=== PATIENT | male | born 1995 ===

== ENCOUNTER 2021-05-29 09:30 | Emergency (ER) | payer MEDICAID, OTHER ==
[2021-05-29 09:48] VITALS: BP 114/55
--- NOTE | 2021-05-29 09:51 | XRAY Report ---
PROCEDURE: Chest 1 View X-Ray INDICATIONS: chest pain TECHNIQUE: One view of the chest was acquired. COMPARISON: None. FINDINGS: Surgical changes and devices: None. Lungs and pleura: No pleural effusions or pneumothorax. Lungs are clear. Mediastinum: Mediastinal contours appear normal. Heart size is normal. Bones and chest wall: No suspicious bony lesions. Overlying soft tissues appear unremarkable. IMPRESSION: No acute cardiopulmonary abnormality. Reviewed by: John Jha MD on 05/29/2021 9:49 AM [facility] Approved by: John Jha MD on 05/29/2021 9:49 AM [facility] Station ID: [id number]
[2021-05-29] MEDS ORDERED: predniSONE 20 MG TABLET PO STA (10:49)
[2021-05-29] MEDS ORDERED: ALBUTEROL 1 PUFF INH STA (10:49)
--- NOTE | 2021-05-29 10:52 | ED Physician Documentation ---
History of Present Illness - Stated complaint Stated Complaint: RATTLING IN CHEST - Chief complaint Chief Complaint: General - History obtained from History obtained from: Patient - Additonal information Additional information: Patient comes emergency department chief complaint of persistent feeling of rattling in his chest for the last couple of weeks. He states that he has not had a fever or chills, and has not felt sick necessarily, but has had a cough productive of intermittently clear or yellow sputum. Patient has a history of smoking cigarettes and has been able to cut down to 3 cigarettes/day. He previously smoked a pack a day, but went to rehab for opiates in the spring and did not have access to his cigarettes. When he got out, he found he was able to get by with much fewer in the way of cigarettes than he had before. Patient states has been clean and sober from drugs for the last 4 months, but would like some resources for counseling, substance abuse, and general support. He states he left his old place of residence [place] [address] and came here to live with his brother, who is been a support to him. No other complaints at this time Review of Systems Ten Systems: 10 systems reviewed and negative Constitutional: reports: Reviewed and negative Eyes: reports: Reviewed and negative Ears: reports: Reviewed and negative Nose: reports: Reviewed and negative Throat: reports: Reviewed and negative Cardiac: reports: Reviewed and negative Respiratory: reports: Cough GI: reports: Reviewed and negative : reports: Reviewed and negative Skin: reports: Reviewed and negative Musculoskeletal: reports: Reviewed and negative Neurologic: reports: Reviewed and negative Psychiatric: reports: Reviewed and negative Endocrine: reports: Reviewed and negative Immunocompromised: reports: Reviewed and negative PD PAST MEDICAL HISTORY - Present Medications Home Medications: Ambulatory Orders Medication Instructions Recorded Confirmed Albuterol Sulf [Ventolin Hfa 1 - 2 puffs INH Q4HR PRN #1 inhaler 05/29/21 Inhaler] predniSONE [Deltasone] 60 mg PO DAILY 5 Days #15 tablet 05/29/21 - Allergies Allergies/Adverse Reactions: Allergies Allergy/AdvReac Type Severity Reaction Status Date / Time acetaminophen [From Tylenol] Allergy Rash Verified 05/29/21 09:44 PD ED PE NORMAL - Vitals Vital signs reviewed: Yes - General General: Alert and oriented X 3, No acute distress, Well developed/nourished - HEENT HEENT: Atraumatic, PERRL, EOMI, Moist mucous membranes - Neck Neck: Supple, no meningeal sign - Cardiac Cardiac: RRR, No murmur - Respiratory Respiratory: No respiratory distress, Other (Bilateral expiratory wheezes and rhonchi, mild. 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 He was given prescription for the same for home. I have given him some community resources for counseling for substance abuse as well as some recommendations for primary care. We have discussed the usual indications for return and the need to quit smoking. Departure - Departure Disposition: 01 Home, Self Care Clinical Impression: Bronchospasm with bronchitis, acute Condition: Stable Instructions: Quit Smoking Plan, ED Wheezing Prescriptions: Albuterol Sulf [Ventolin Hfa Inhaler] 1 - 2 puffs INH Q4HR PRN #1 inhaler PRN Reason: Shortness Of Air/Wheezing predniSONE [Deltasone] 60 mg PO DAILY 5 Days #15 tablet
== END 2021-05-29 11:44 | disposition home or self-care (01) ==
LOC: ED 09:30
DX: J20.9 Acute bronchitis, unspecified (principal)
CPT/HCPCS: 71045; 94640; 94664; 99283; 99284; J7512

== ENCOUNTER 2021-10-24 08:00 | Outpatient (CLI) | payer MEDICAID ==
[2021-10-24 18:11] LABS: BASOPHILS # (AUTO) 0.1 10^3/uL (0.0-0.1); BASOPHILS % (AUTO) 0.4 %; EOSINOPHILS % (AUTO) 0.3 %; HCT - HEMATOCRIT 39.6 % (42.0-52.0); HGB - HEMOGLOBIN 13.8 g/dL (14.0-18.0); LYMPHOCYTES # (AUTO) 2.3 10^3/uL (1.5-3.5); LYMPHOCYTES % (AUTO) 20.2 %; MEAN CORPUSCULAR HEMOGLOBIN 32.5 pg (27.0-31.0); MEAN CORPUSCULAR HGB CONC 34.8 g/dL (32.0-36.0); MEAN CORPUSCULAR VOLUME 93.2 fL (80.0-94.0); MEAN PLATELET VOLUME 9.9 fL (7.4-11.4); MONOCYTES # (AUTO) 1.3 10^3/uL (0.0-1.0); MONOCYTES % (AUTO) 10.9 %; NEUTROPHILS # (AUTO) 7.9 10^3/uL (1.5-6.6); NEUTROPHILS % (AUTO) 67.9 %; PLT - PLATELET COUNT 322 10^3/uL (130-450); RED BLOOD COUNT 4.25 10^6/uL (4.70-6.10); WHITE BLOOD COUNT 11.6 x10^3/uL (4.8-10.8)
[2021-10-24 18:34] LABS: BILIRUBIN,URINE NEGATIVE (NEGATIVE); GLUCOSE, URINE (UA) NEGATIVE (NEGATIVE); KETONES,URINE (UA) 15 mg/dL (NEGATIVE); LEUKOCYTE ESTERASE, URINE NEGATIVE (NEGATIVE); NITRITE,URINE NEGATIVE (NEGATIVE); OCCULT BLOOD,URINE NEGATIVE (NEGATIVE); PROTEIN,URINE NEGATIVE (NEGATIVE); UROBILINOGEN,URINE 0.2 (NORMAL) E.U./dL (NORMAL)
[2021-10-24 18:35] LABS: ALBUMIN 5.3 g/dL (3.2-5.5); ALBUMIN/GLOBULIN RATIO 2.1 (1.0-2.2); BILIRUBIN,TOTAL 1.5 mg/dL (0.2-1.0); CALCIUM 9.3 mg/dL (8.5-10.3); CREATININE 1.6 mg/dL (0.6-1.2); POTASSIUM 3.6 mmol/L (3.5-5.0); TOTAL PROTEIN 7.8 g/dL (6.7-8.2)
[2021-10-24 18:45] LABS: CLARITY,URINE CLEAR (CLEAR)
== END 2021-10-24 23:59 | disposition home or self-care (01) ==
LOC: LAB.N 08:00
PROVIDERS: ATTEND Family Medicine
DX: R11.2 Nausea with vomiting, unspecified (principal)
CPT/HCPCS: 36415; 80053; 81001; 81003; 82150; 83690; 85025; 87086

== ENCOUNTER 2021-11-08 23:12 | Outpatient (CLI) | payer MEDICAID | END 2021-11-08 23:13 | disposition critical access hospital (66) | LOC: EMS 23:12 | DX: R45.851 Suicidal ideations (principal) | CPT/HCPCS: A0425; A0429; A0999 ==

== ENCOUNTER 2021-11-08 23:31 | Emergency (ER) | payer MEDICAID ==
--- OUTSIDE RECORDS SUMMARY | 2021-11-08 23:40 | EXTERNAL MEDICAL SUMMARY RPT | Continuity of Care Document ---
:1995 Author Organization [facility] Address [address] [place] [address] Phone Care Team Providers Name Role Phone Clapper Unavailable Unavailable Allergies No information. Encounters No information. Medications date description facility 20211027 Ondansetron 4 MG Disintegrating Tablet [facility] Problems date description facility 20211027 Nausea with vomiting, unspecified [facility] Procedures date description facility 20211027 General Physician [facility] Results No information. Vital Signs date measurement value source 20211027 weight_standard 149.98 lb 20211027 weight_metric 68.03 kg 20211027 temperature_standard 99 F 20211027 temperature_metric 37.22 C 20211027 respiration_rate 16 /min 20211027 height_standard 73 in 20211027 height_metric 185.42 cm 20211027 heart_rate 88 /min 20211027 BP_systolic 118 mm[Hg] 20211027 BP_diastolic 71 mm[Hg] 20211027 BMI 19.8 kg/m2
[2021-11-08 23:55] LABS: MUDS CUTOFF CONCENTRATIONS CUTOFF CONC BELOW:
[2021-11-09] LABS: BILIRUBIN,URINE NEGATIVE (NEGATIVE); GLUCOSE, URINE (UA) NEGATIVE (NEGATIVE); KETONES,URINE (UA) TRACE mg/dL (NEGATIVE); LEUKOCYTE ESTERASE, URINE NEGATIVE (NEGATIVE); NITRITE,URINE NEGATIVE (NEGATIVE); OCCULT BLOOD,URINE NEGATIVE (NEGATIVE); PH,URINE 5.5 PH (5.0-7.5); PROTEIN,URINE 30 mg/dL (NEGATIVE); UROBILINOGEN,URINE 0.2 (NORMAL) E.U./dL (NORMAL)
[2021-11-09 00:02] LABS: CLARITY,URINE SL. CLOUDY (CLEAR)
[2021-11-09 00:11] LABS: AMORPHOUS SEDIMENT,UR Few /LPF; BACTERIA,URINE Rare /HPF (None Seen); RBC,URINE 0-5 /HPF (0-5); SQUAMOUS EPITHELIAL CELL,UR RARE Squamous (<= Few); WBC,URINE 0-3 /HPF (0-3)
[2021-11-09 00:12] LABS: CASTS, URINE 11-25 Fine Granular /LPF; CRYSTALS,URINE 6-10 Calcium Oxalate /LPF
[2021-11-09 00:13] LABS: AMPHETAMINE SCREEN,URINE NEGATIVE (NEGATIVE); BARBITURATE SCREEN,UR NEGATIVE (NEGATIVE); BENZODIAZEPINES SCREEN, URINE NEGATIVE (NEGATIVE); COCAINE SCREEN URINE NEGATIVE (NEGATIVE); METHADONE SCREEN, URINE NEGATIVE (NEGATIVE); METHAMPHETAMINES SCREEN, URINE NEGATIVE (NEGATIVE); OPIATE SCREEN, URINE NEGATIVE (NEGATIVE); OXYCODONE SCREEN, URINE NEGATIVE (NEGATIVE); PROPOXYPHENE SCREEN, URINE NEGATIVE (NEGATIVE); THC CANNABINOID SCREEN, URINE POSITIVE (NEGATIVE); TRICYCLIC ANTIDEPRESSANT,URINE NEGATIVE (NEGATIVE)
--- NOTE | 2021-11-09 01:36 | ED Physician Documentation ---
History of Present Illness - Stated complaint Stated Complaint: WANTS TO GET CLEAN - Chief complaint Chief Complaint: MHE - History obtained from History obtained from: Patient - History of Present Illness Timing: Today Improved by: nothing Worsened by: no exacerbating factors - Additonal information Additional information: patient states "I'm withdrawing from fentanyl". He says he has been using fentanyl daily (smokes), last use approximately 36 hours [employer] (Friday morning). He says he lost his job earlier today and was kicked out of his living situation 2 days ago. He has been on suboxone and lamictal in the past, estimates his last doses of these medications was five months ago (lamictal had been prescribed as a mood stabilizer). He is interested in inpatient detox from fentanyl Review of Systems Constitutional: reports: Reviewed and negative Cardiac: reports: Reviewed and negative Respiratory: reports: Reviewed and negative GI: reports: Reviewed and negative Musculoskeletal: reports: Reviewed and negative Neurologic: reports: Reviewed and negative Psychiatric: reports: Reviewed and negative PD PAST MEDICAL HISTORY - Past Medical History Past Medical History: No - Present Medications Home Medications: Ambulatory Orders Medication Instructions Recorded Confirmed Albuterol Sulf [Ventolin Hfa 1 - 2 puffs INH Q4HR PRN #1 inhaler 05/29/21 Inhaler] predniSONE [Deltasone] 60 mg PO DAILY 5 Days #15 tablet 05/29/21 - Allergies Allergies/Adverse Reactions: Allergies Allergy/AdvReac Type Severity Reaction Status Date / Time acetaminophen [From Tylenol] Allergy Rash Verified 05/29/21 09:44 - Social History Does the pt have substance abuse?: Yes PD ED PE NORMAL - Vitals Vital signs reviewed: Yes - General General: Alert and oriented X 3, No acute distress, Well developed/nourished - HEENT HEENT: Moist mucous membranes - Neck Neck: Supple, no meningeal sign - Cardiac Cardiac: RRR, No murmur - Respiratory Respiratory: No respiratory distress, Clear bilaterally - Abdomen Abdomen: Soft, Non tender - Derm Derm: Normal color, Warm and dry, No rash - Neuro Neuro: Alert and oriented X 3 - Psych Psych: Normal mood, Normal affect Results - Vitals Vitals: Vital Signs - 24 hr 11/08/21 11/09/21 11/09/21 23:36 04:25 06:30 Temperature 36.4 C L 36.9 C Heart Rate 68 74 64 Respiratory 20 20 9 L Rate Blood Pressure 123/81 H 130/76 102/56 L O2 Saturation 99 97 96 11/09/21 06:53 Temperature Heart Rate 55 L Respiratory 9 L Rate Blood Pressure O2 Saturation 95 Oxygen O2 Source Room air - Labs Labs: Laboratory Tests 11/08/21 11/09/21 11/09/21 23:45 02:14 02:28 WBC 12.2 H RBC 3.80 L Hgb 12.3 L Hct 36.2 L MCV 95.3 H MCH 32.4 H MCHC 34.0 RDW 13.7 Plt Count 245 MPV 9.3 Neut # (Auto) 7.9 H Lymph # (Auto) 3.1 [place] # (Auto) 1.1 H Eos # (Auto) 0.0 Baso # (Auto) 0.0 Absolute Nucleated RBC 0.00 Nucleated RBC % 0.0 Sodium Potassium Chloride Carbon Dioxide Anion Gap BUN Creatinine Estimated GFR (MDRD) Glucose Calcium Total Bilirubin AST ALT Alkaline Phosphatase Total Protein Albumin Globulin Albumin/Globulin Ratio Lipase TSH Urine Color YELLOW Urine Clarity SL. CLOUDY Urine pH 5.5 Ur Specific [place] >=1.030 H Urine Protein 30 H Urine Glucose (UA) NEGATIVE Urine Ketones TRACE Urine Occult Blood NEGATIVE Urine Nitrite NEGATIVE Urine Bilirubin NEGATIVE Urine Urobilinogen 0.2 (NORMAL) Ur Leukocyte Esterase NEGATIVE Urine RBC 0-5 Urine WBC 0-3 Ur Squamous Epith Cells RARE Squamous Urine Crystals 6-10 Calcium Oxalate Amorphous Sediment Few Urine Bacteria Rare Urine Casts 11-25 Fine Granular Urine Culture Comments NOT INDICATED Nasal Adenovirus (PCR) NOT DETECTED Nasal B. parapertussis DNA (PCR) NOT DETECTED Nasal Coronavir 229E PCR NOT DETECTED Nasal Coronavir HKU1 PCR NOT DETECTED Nasal Coronavir NL63 PCR NOT DETECTED Nasal Coronavir OC43 PCR NOT DETECTED Nasal Enterovir/Rhinovir PCR NOT DETECTED Nasal Influenza B PCR NOT DETECTED Nasal Influenza A PCR NOT DETECTED Nasal Parainfluen 1 PCR NOT DETECTED Nasal Parainfluen 2 PCR NOT DETECTED Nasal Parainfluen 3 PCR NOT DETECTED Nasal Parainfluen 4 PCR NOT DETECTED Nasal RSV (PCR) NOT DETECTED Nasal B.pertussis DNA PCR NOT DETECTED Nasal C.pneumoniae (PCR) NOT DETECTED [place] Human Metapneumo PCR NOT DETECTED Nasal M.pneumoniae (PCR) NOT DETECTED Nasal SARS-CoV-2 (PCR) NOT DETECTED Salicylates Urine Opiates Screen NEGATIVE Ur Oxycodone Screen NEGATIVE Urine Methadone Screen NEGATIVE Ur Propoxyphene Screen NEGATIVE Acetaminophen Ur Barbiturates Screen NEGATIVE Ur Tricyclics Screen NEGATIVE Ur Phencyclidine Scrn NEGATIVE Ur Amphetamine Screen NEGATIVE U Methamphetamines Scrn NEGATIVE U Benzodiazepines Scrn NEGATIVE Urine Cocaine Screen NEGATIVE U Cannabinoids Screen POSITIVE H Ethyl Alcohol 11/09/21 11/09/21 02:28 02:28 WBC RBC Hgb Hct MCV MCH MCHC RDW Plt Count MPV Neut # (Auto) Lymph # (Auto) [place] # (Auto) Eos # (Auto) Baso # (Auto) Absolute Nucleated RBC Nucleated RBC % Sodium 136 Potassium 3.9 Chloride 101 Carbon Dioxide 24 Anion Gap 11.0 BUN 22 H Creatinine 1.4 H Estimated GFR (MDRD) 62 L Glucose 112 H Calcium 9.4 Total Bilirubin 0.7 AST 47 H ALT 40 Alkaline Phosphatase 105 Total Protein 7.0 Albumin 4.4 Globulin 2.6 Albumin/Globulin Ratio 1.7 Lipase 33 TSH 1.82 Urine Color Urine Clarity Urine pH Ur Specific [place] Urine Protein Urine Glucose (UA) Urine Ketones Urine Occult Blood Urine Nitrite Urine Bilirubin Urine Urobilinogen Ur Leukocyte Esterase Urine RBC Urine WBC Ur Squamous Epith Cells Urine Crystals Amorphous Sediment Urine Bacteria Urine Casts Urine Culture Comments Nasal Adenovirus (PCR) Nasal B. parapertussis DNA (PCR) Nasal Coronavir 229E PCR Nasal Coronavir HKU1 PCR Nasal Coronavir NL63 PCR Nasal Coronavir OC43 PCR Nasal Enterovir/Rhinovir PCR Nasal Influenza B PCR Nasal Influenza A PCR Nasal Parainfluen 1 PCR Nasal Parainfluen 2 PCR Nasal Parainfluen 3 PCR Nasal Parainfluen 4 PCR Nasal RSV (PCR) Nasal B.pertussis DNA PCR Nasal C.pneumoniae (PCR) [place] Human Metapneumo PCR Nasal M.pneumoniae (PCR) Nasal SARS-CoV-2 (PCR) Salicylates < 6.0 Urine Opiates Screen Ur Oxycodone Screen Urine Methadone Screen Ur Propoxyphene Screen Acetaminophen < 10 L Ur Barbiturates Screen Ur Tricyclics Screen Ur Phencyclidine Scrn Ur Amphetamine Screen U Methamphetamines Scrn U Benzodiazepines Scrn Urine Cocaine Screen U Cannabinoids Screen Ethyl Alcohol < 5.0 PD MEDICAL DECISION MAKING - ED course Complexity details: reviewed results, re-evaluated patient, considered differential, d/w patient ED course: Patient presents calm, cooperative , and in NAD, requesting detox from fentanyl. I contacted [facility] to ascertain bed availability, but I was told that due to staffing shortages, they cannot intake new patients until Friday. Thus plan is to consult in AM for placement. Patient became increasingly uncomfortable over ensuing few hours, having difficulty sitting still, with profuse diaphoresis, abdominal cramping and diarrhea. Despite this, he remained polite and cooperative. At no time did he ask for any medications. Initially he was given clonidine and lorazepam PO (early in stay, before he became visibly uncomfortable), along with ibuprofen for headache. As he became uncomfortable and diaphoretic, he was given IV dilaudid and lorazepam, as well as PO loperamide. He was given another dose of IV lorazepam and another dose of IV dilaudid had been ordered, but he finally became sedate and thus he did not receive the second IV dilaudid dose. He then was drowsy for remainder of my shift; he would waken briefly to repeated verbal stimulation, but speech was slurred and some of his answers to questions were odd. ED RN contacted [facility] and they attempted intake over phone, but patient was drowsy and, again, was giving odd answers (such as talking about his cat when asked his social security number). Plan is to hold patient in ED until the given medications wear off at which time he can be reassessed for transfer to appropriate detox facility if he still desires this. Care of patient turned over to Dr. Ortiz at end of my shift.
[2021-11-09] MEDS: IBUPROFEN 600 MG TABLET PO STA (02:01)
[2021-11-09 02:36] LABS: BASOPHILS % (AUTO) 0.3 %; EOSINOPHILS % (AUTO) 0.3 %; HCT - HEMATOCRIT 36.2 % (42.0-52.0); HGB - HEMOGLOBIN 12.3 g/dL (14.0-18.0); LYMPHOCYTES # (AUTO) 3.1 10^3/uL (1.5-3.5); LYMPHOCYTES % (AUTO) 25.3 %; MEAN CORPUSCULAR HEMOGLOBIN 32.4 pg (27.0-31.0); MEAN CORPUSCULAR VOLUME 95.3 fL (80.0-94.0); MEAN PLATELET VOLUME 9.3 fL (7.4-11.4); MONOCYTES # (AUTO) 1.1 10^3/uL (0.0-1.0); NEUTROPHILS # (AUTO) 7.9 10^3/uL (1.5-6.6); NEUTROPHILS % (AUTO) 64.9 %; PLT - PLATELET COUNT 245 10^3/uL (130-450); RED CELL DISTRIBUTION WIDTH 13.7 % (12.0-15.0); WHITE BLOOD COUNT 12.2 x10^3/uL (4.8-10.8)
[2021-11-09 02:47] LABS: ACETAMINOPHEN < 10 ug/mL (10-30); ALBUMIN 4.4 g/dL (3.2-5.5); ALBUMIN/GLOBULIN RATIO 1.7 (1.0-2.2); ALKALINE PHOSPHATASE 105 IU/L (42-121); ALT ALANINE AMINOTRANSFERASE 40 IU/L (10-60); AST ASPARTATE AMINOTRANSFERASE 47 IU/L (10-42); BILIRUBIN,TOTAL 0.7 mg/dL (0.2-1.0); BUN - BLOOD UREA NITROGEN 22 mg/dL (6-20); CALCIUM 9.4 mg/dL (8.5-10.3); CARBON DIOXIDE - CO2 24 mmol/L (21-32); CHLORIDE 101 mmol/L (101-111); CREATININE 1.4 mg/dL (0.6-1.2); ETOH - ETHANOL < 5.0 mg/dL; GFR - MDRD 62 (>89); GLUCOSE 112 mg/dL (70-100); LIPASE 33 U/L (22-51); POTASSIUM 3.9 mmol/L (3.5-5.0); SALICYLATE < 6.0 mg/dL; SODIUM 136 mmol/L (135-145)
[2021-11-09 03:14] LABS: B. PARAPERTUSSIS- RESP PCR PAN NOT DETECTED; CORONAVIRUS 229E-RESP PCR NOT DETECTED; CORONAVIRUS HKU1-RESP PCR NOT DETECTED; CORONAVIRUS NL63-RESP PCR NOT DETECTED; CORONAVIRUS OC43-RESP PCR NOT DETECTED; HUMAN METAPNEUMOVIRUS NOT DETECTED; INFLUENZA A- RESP PCR PANEL NOT DETECTED; INFLUENZA B - RESP PCR PANEL NOT DETECTED; PARAINFLUENZA VIRUS 1 NOT DETECTED; PARAINFLUENZA VIRUS 2 NOT DETECTED; PARAINFLUENZA VIRUS 3 NOT DETECTED; PARAINFLUENZA VIRUS 4 NOT DETECTED; RHINOVIRUS/ENTEROVIRUS NOT DETECTED; RSV- RESP PCR PANEL NOT DETECTED; SARS-CoV-2 -RESP PCR PANEL NOT DETECTED
[2021-11-09 03:15] LABS: B. PERTUSSIS- RESP PCR PANEL NOT DETECTED; C. PNEUMONIAE- RESP PCR PANEL NOT DETECTED; M. PNEUMONIAE- RESP PCR PANEL NOT DETECTED
[2021-11-09] MEDS: cloNIDine 0.1 MG TABLET PO STA (04:35)
[2021-11-09] MEDS: LORazepam 0.5 MG TABLET PO STA (04:35)
[2021-11-09] MEDS: LORazepam 2 MG/ML VIAL IM STA (04:58)
[2021-11-09] MEDS: LOPERAMIDE 2 MG CAPSULE PO STA (04:58)
[2021-11-09] MEDS: HYDROmorphone 1 MG/ML CARPUJECT IVP STA ×2 (05:34→05:55)
[2021-11-09] MEDS: LORazepam 2 MG/ML VIAL IVP STA (05:39)
[2021-11-09] MEDS: SODIUM CHLORIDE 0.9% 1,000 ML IV STA ×2 (05:40→09:20)
[2021-11-09] MEDS: ONDANSETRON 4 MG/2 ML VIAL IVP STA (09:27)
--- NOTE | 2021-11-09 14:30 | ED Physician Documentation ---
ED Addendum - Addendum Addendum: 11/09/21 14:27Social work has talked with the patient and has sought out detox facilities for treatment acutely. One of the places considered excepting him except he also takes an herbal drug called kratom and so they did not want him. Other facilities that would accept him did not have any beds available. He is given resources to contact the facilities over the next few days when they should be having beds available. Otherwise he is still sleepy from medications given earlier. Hard to tell entirely but I presume more the benzodiazepine. He is not showing signs of acute withdrawal from opioids at this time but no doubt will have some later. He has used Suboxone in the past with success in the short-term. I can prescribe him Suboxone outpatient for the next 5 days during which time he should be likely to find placement one of the detox facilities for further treatment. At this point do I talked with him and he will need to hold off on the first dosing until he is starting to have withdrawal symptoms later this afternoon. You can use ondansetron if needed for nausea as well. He should return to the ER if needed for worsening symptoms. Disposition: The patient is discharged from the emergency room stable. Diagnoses: Polysubstance abuse 2. Prescription opioid addiction and dependence 3. Opioid withdrawal syndrome
[2021-11-09 15:08] VITALS: BP 108/66
== END 2021-11-09 15:20 | disposition home or self-care (01) ==
LOC: EDUNIT# → ED 23:31
DX: F11.23 Opioid dependence with withdrawal (principal); Z20.822 Contact with and (suspected) exposure to COVID-19
CPT/HCPCS: 36415; 80053; 80306; 80307; 80320; 80329; 81001; 83690; 84443; 85025; 87633; 96372; 96374; 96375; 99283; 99284; A9270; J1170; J2060; 87086

== ENCOUNTER 2022-06-08 13:05 | Emergency (ER) | payer MEDICAID ==
[2022-06-08] MEDS ORDERED: VANCOMYCIN INJ 1.25 GM in SODIUM CHLORIDE 0.9% 250 ML IV STA (13:42)
[2022-06-08] MEDS ORDERED: AMPICILLIN/SULBACTAM 3 GM in SODIUM CHLORIDE 0.9% MINIBAG 100 ML IV STA (13:42)
[2022-06-08] MEDS ORDERED: SODIUM CHLORIDE 0.9% 1,000 ML IV STA (13:43)
[2022-06-08 14:06] LABS: BASOPHILS % (AUTO) 0.3 %; EOSINOPHILS # (AUTO) 0.3 10^3/uL (0.0-0.7); EOSINOPHILS % (AUTO) 2.3 %; HCT - HEMATOCRIT 39.9 % (42.0-52.0); HGB - HEMOGLOBIN 12.5 g/dL (14.0-18.0); LYMPHOCYTES # (AUTO) 1.3 10^3/uL (1.5-3.5); LYMPHOCYTES % (AUTO) 11.5 %; MEAN CORPUSCULAR HEMOGLOBIN 27.8 pg (27.0-31.0); MEAN CORPUSCULAR HGB CONC 31.3 g/dL (32.0-36.0); MEAN CORPUSCULAR VOLUME 88.7 fL (80.0-94.0); MEAN PLATELET VOLUME 8.2 fL (7.4-11.4); MONOCYTES # (AUTO) 0.5 10^3/uL (0.0-1.0); MONOCYTES % (AUTO) 4.7 %; NEUTROPHILS % (AUTO) 80.8 %; PLT - PLATELET COUNT 406 10^3/uL (130-450); RED CELL DISTRIBUTION WIDTH 14.3 % (12.0-15.0); WHITE BLOOD COUNT 11.1 x10^3/uL (4.8-10.8)
[2022-06-08 14:15] LABS: INR 1.1 (0.8-1.2); PT - PROTHROMBIN TIME 12.2 secs (9.9-12.6)
[2022-06-08 14:18] LABS: ALBUMIN 3.4 g/dL (3.2-5.5); ALBUMIN/GLOBULIN RATIO 0.8 (1.0-2.2); BILIRUBIN,TOTAL 0.2 mg/dL (0.2-1.0); CALCIUM 9.3 mg/dL (8.5-10.3); CREATININE 0.6 mg/dL (0.6-1.2); POTASSIUM 3.9 mmol/L (3.5-5.0); TOTAL PROTEIN 7.9 g/dL (6.7-8.2)
--- NOTE | 2022-06-08 14:21 | XRAY Report ---
PROCEDURE: Chest 1 View X-Ray INDICATIONS: fever TECHNIQUE: One view of the chest was acquired. COMPARISON: None. FINDINGS: Limited by rotation Surgical changes and devices: None. Lungs and pleura: No pleural effusions or pneumothorax. Lungs are clear. Mediastinum: Mediastinal contours appear normal. Heart size is normal. Bones and chest wall: No suspicious bony lesions. Overlying soft tissues appear unremarkable. IMPRESSION: No acute cardiopulmonary findings Reviewed by: Guillermo Caballero MD on 06/08/2022 1:20 PM [facility] Approved by: Guillermo Caballero MD on 06/08/2022 1:20 PM [facility] Station ID: [id number]
[2022-06-08 14:22] LABS: PARTIAL THROMBOPLASTIN TIME 30.4 secs (24.9-33.3)
--- NOTE | 2022-06-08 14:26 | ED Physician Documentation ---
History of Present Illness - Stated complaint Stated Complaint: SWELLING BOTH HANDS - Chief complaint Chief Complaint: Wound - History obtained from History obtained from: Patient, Family - History of Present Illness Timing: How many weeks ago (several weeks) Pain level max: 6 Pain level now: 4 - Additonal information Additional information: Patient is a 27-year-old male who presents to the emergency department complaining of wounds to his bilateral hands and arms. He uses fentanyl daily, injects and smokes. He states he has felt feverish at home. He was seen at [facility] about 4 weeks ago and was placed on IV antibiotics. He reportedly left [facility] in [place] because he did not like the treatment there. He states that the wounds have been draining spontaneously. No vomiting. No cough. No chest pain. No abdominal pain. Review of Systems Ten Systems: 10 systems reviewed and negative Constitutional: denies: Fever, Chills Nose: denies: Rhinorrhea / runny nose, Congestion Cardiac: denies: Chest pain / pressure, Palpitations Respiratory: denies: Dyspnea, Cough, Hemoptysis, Wheezing GI: denies: Nausea, Vomiting, Diarrhea Skin: denies: Rash Musculoskeletal: denies: Neck pain, Back pain Neurologic: denies: Headache PD PAST MEDICAL HISTORY - Past Medical History Past Medical History: Yes Respiratory: Other : Other Psych: Other - Past Surgical History Past Surgical History: No General: Appendectomy - Present Medications Home Medications: Ambulatory Orders Medication Instructions Recorded Confirmed Albuterol Sulf [Ventolin Hfa 1 - 2 puffs INH Q4HR PRN #1 inhaler 05/29/21 Inhaler] predniSONE [Deltasone] 60 mg PO DAILY 5 Days #15 tablet 05/29/21 Buprenorphine HCl/Naloxone HCl 1 each SL BID 5 Days #10 film MDD 11/09/21 [Suboxone 8 mg-2 mg Sl Film] 16 mg Promethazine [Phenergan] 25 mg PO Q6H PRN #15 tab 11/09/21 Sulfamethox/Trimeth 800/160 1 each PO BID #20 tablet 06/08/22 [Bactrim Ds 800/160] cephALEXin [Keflex] 500 mg PO Q6H #40 cap 06/08/22 - Allergies Allergies/Adverse Reactions: Allergies Allergy/AdvReac Type Severity Reaction Status Date / Time acetaminophen [From Tylenol] Allergy Rash Verified 06/08/22 13:16 - Social History Does the pt smoke?: Yes Smoking Status: Current every day smoker Does the pt drink ETOH?: Yes Does the pt have substance abuse?: Yes - Immunizations Immunizations are current?: No - POLST Patient has POLST: No PD ED PE NORMAL - Vitals Vital signs reviewed: Yes - General General: Alert and oriented X 3, No acute distress - HEENT HEENT: Moist mucous membranes - Neck Neck: Supple, no meningeal sign - Cardiac Cardiac: RRR, No murmur, Strong equal pulses - Respiratory Respiratory: No respiratory distress, Clear bilaterally - Abdomen Abdomen: Soft, Non tender, Non distended - Derm Derm: Warm and dry - Extremities Extremities: Normal ROM s pain (Full range of motion of all major joints without pain.), Other (There is a draining wound to the dorsal aspect of the left hand. There is also an indurated draining wound to the right forearm. There are scabbed lesions on the right knee. Minimal cellulitis.) - Neuro Neuro: Alert and oriented X 3 - Psych Psych: Normal mood, Normal affect Results - Vitals Vitals: Vital Signs - 24 hr 06/08/22 06/08/22 13:12 15:30 Temperature 36.9 C Heart Rate 103 H 68 Respiratory 16 24 Rate Blood Pressure 139/88 H 137/61 H O2 Saturation 99 99 Oxygen O2 Source Room air - Labs Labs: Microbiology 06/08/22 14:45 Wound Culture - Preliminary Hand - Left Laboratory Tests 06/08/22 06/08/22 06/08/22 13:52 13:52 13:52 WBC 11.1 H RBC 4.50 L Hgb 12.5 L Hct 39.9 L MCV 88.7 MCH 27.8 MCHC 31.3 L RDW 14.3 Plt Count 406 MPV 8.2 Neut # (Auto) 9.0 H Lymph # (Auto) 1.3 L [place] # (Auto) 0.5 Eos # (Auto) 0.3 Baso # (Auto) 0.0 Absolute Nucleated RBC 0.00 Nucleated RBC % 0.0 PT INR APTT Sodium 139 Potassium 3.9 Chloride 100 L Carbon Dioxide 29 Anion Gap 10.0 BUN 11 Creatinine 0.6 Estimated GFR (MDRD) 163 Glucose 128 H Lactic Acid 1.6 Calcium 9.3 Total Bilirubin 0.2 AST 19 ALT 22 Alkaline Phosphatase 73 Total Protein 7.9 Albumin 3.4 Globulin 4.5 H Albumin/Globulin Ratio 0.8 L Lipase 38 Procalcitonin Urine Color Urine Clarity Urine pH Ur Specific [place] Urine Protein Urine Glucose (UA) Urine Ketones Urine Occult Blood Urine Nitrite Urine Bilirubin Urine Urobilinogen Ur Leukocyte Esterase Ur Microscopic Review Urine Culture Comments 06/08/22 06/08/22 06/08/22 13:57 13:57 16:20 WBC RBC Hgb Hct MCV MCH MCHC RDW Plt Count MPV Neut # (Auto) Lymph # (Auto) [place] # (Auto) Eos # (Auto) Baso # (Auto) Absolute Nucleated RBC Nucleated RBC % PT 12.2 INR 1.1 APTT 30.4 Sodium Potassium Chloride Carbon Dioxide Anion Gap BUN Creatinine Estimated GFR (MDRD) Glucose Lactic Acid Calcium Total Bilirubin AST ALT Alkaline Phosphatase Total Protein Albumin Globulin Albumin/Globulin Ratio Lipase Procalcitonin 0.09 Urine Color YELLOW Urine Clarity CLEAR Urine pH 7.5 Ur Specific [place] 1.010 Urine Protein NEGATIVE Urine Glucose (UA) NEGATIVE Urine Ketones NEGATIVE Urine Occult Blood NEGATIVE Urine Nitrite NEGATIVE Urine Bilirubin NEGATIVE Urine Urobilinogen 0.2 (NORMAL) Ur Leukocyte Esterase NEGATIVE Ur Microscopic Review NOT INDICATED Urine Culture Comments NOT INDICATED PD MEDICAL DECISION MAKING - ED course Complexity details: reviewed results, re-evaluated patient, considered differential (No evidence of septic joints, no evidence of endocarditis.), d/w patient, d/w family ED course: Patient has open draining wounds with cellulitis. His lactate is normal. Procalcitonin is normal. White count minimally elevated. Given IV antibiotics here. Will place on oral antibiotics for home. We will have him follow-up closely with his doctor. Information was given for rehab/detox should he choose to pursue this. The information was gone over extensively with his brother. On the patient has no indication for admission at this time. No evidence of sepsis. Patient and family counseled regarding signs and symptoms for which I believe and urgent re-evaluation would be necessary. Patient with good understanding of and agreement to plan and is comfortable going home at this time This document was made in part using voice recognition software. While efforts are made to proofread this document, sound alike and grammatical errors may occur. Departure - Departure Disposition: 01 Home, Self Care Clinical Impression: Abscess, Opiate abuse, continuous Condition: Good Instructions: ED Staph Infec Abx Tx Only, ED Drug Abuse General Follow-Up: [facility] [place] [Provider Group] Primary[facility]Walk In [place] [Provider Group] Walk In [facility] [Provider Group] Prescriptions: Sulfamethox/Trimeth 800/160 [Bactrim Ds 800/160] 1 each PO BID #20 tablet cephALEXin [Keflex] 500 mg PO Q6H #40 cap Comments: Your prescriptions were sent to [facility] in [place]. Please follow-up with your doctor for further care. You should have your wounds rechecked in 3 to 4 days with your doctor. Please return here if you worsen including fevers, worsening redness or swelling. [facility] is a rehabilitation facility in [place]. Contact: [facility] [address] [place] [phone] Fax: Discharge Date/Time: 06/08/22 17:02
[2022-06-08 15:57] VITALS: BP 137/61
[2022-06-08 16:25] LABS: BILIRUBIN,URINE NEGATIVE (NEGATIVE); GLUCOSE, URINE (UA) NEGATIVE (NEGATIVE); KETONES,URINE (UA) NEGATIVE (NEGATIVE); LEUKOCYTE ESTERASE, URINE NEGATIVE (NEGATIVE); NITRITE,URINE NEGATIVE (NEGATIVE); OCCULT BLOOD,URINE NEGATIVE (NEGATIVE); PH,URINE 7.5 PH (5.0-7.5); PROTEIN,URINE NEGATIVE (NEGATIVE); UROBILINOGEN,URINE 0.2 (NORMAL) E.U./dL (NORMAL)
[2022-06-08 16:32] LABS: CLARITY,URINE CLEAR (CLEAR)
--- NOTE | 2022-06-11 12:28 | ED Physician Documentation ---
ED Addendum - Addendum Addendum: 06/11/22 12:28 Culture reviewed, he has a fairly huerta resistant MRSA, the only oral option would be linezolid and I asked the nurse to call him in: Linezolid 600 mg p.o. twice daily for 10 days no refills
== END 2022-06-08 17:02 | disposition home or self-care (01) ==
LOC: ED 13:05
DX: L02.413 Cutaneous abscess of right upper limb (principal); L02.512 Cutaneous abscess of left hand; L03.115 Cellulitis of right lower limb; B95.62 Methicillin resistant Staphylococcus aureus infection as the cause of diseases classified elsewhere; F11.10 Opioid abuse, uncomplicated; F17.200 Nicotine dependence, unspecified, uncomplicated
CPT/HCPCS: 36415; 71045; 80053; 81003; 83605; 83690; 84145; 85025; 85610; 85730; 87040; 87070; 87181; 87205; 96365; 96366; 96367; 99284; J3370; 81001; 87086

== ENCOUNTER 2022-06-11 15:45 | Emergency (ER) | payer MEDICAID ==
[2022-06-11 16:46] LABS: BASOPHILS # (AUTO) 0.1 10^3/uL (0.0-0.1); BASOPHILS % (AUTO) 0.5 %; EOSINOPHILS # (AUTO) 0.2 10^3/uL (0.0-0.7); EOSINOPHILS % (AUTO) 1.7 %; HGB - HEMOGLOBIN 13.3 g/dL (14.0-18.0); LYMPHOCYTES # (AUTO) 1.7 10^3/uL (1.5-3.5); LYMPHOCYTES % (AUTO) 14.8 %; MEAN CORPUSCULAR HEMOGLOBIN 28.5 pg (27.0-31.0); MEAN CORPUSCULAR HGB CONC 32.4 g/dL (32.0-36.0); MEAN CORPUSCULAR VOLUME 87.8 fL (80.0-94.0); MEAN PLATELET VOLUME 8.1 fL (7.4-11.4); MONOCYTES # (AUTO) 0.7 10^3/uL (0.0-1.0); MONOCYTES % (AUTO) 5.8 %; NEUTROPHILS # (AUTO) 8.8 10^3/uL (1.5-6.6); NEUTROPHILS % (AUTO) 76.5 %; PLT - PLATELET COUNT 484 10^3/uL (130-450); RED BLOOD COUNT 4.67 10^6/uL (4.70-6.10); RED CELL DISTRIBUTION WIDTH 14.2 % (12.0-15.0); WHITE BLOOD COUNT 11.4 x10^3/uL (4.8-10.8)
[2022-06-11] MEDS ORDERED: METHADONE 5 MG TABLET PO STA (16:54)
--- NOTE | 2022-06-11 16:54 | ED Physician Documentation ---
History of Present Illness - Stated complaint Stated Complaint: FEVER/NUMBNESS - Chief complaint Chief Complaint: General - History obtained from History obtained from: Patient, Family - Additonal information Additional information: This is young man with history of IV fentanyl abuse who presents with his mother. He was seen here by one of my partners on Friday for wounds and subsequently a culture grew out a fairly huerta resistant MRSA. He had a fever last night and they are unsure that they will be able to fill the linezolid that we called in earlier in the day due to cost. Review of Systems Ten Systems: 10 systems reviewed and negative Constitutional: reports: Fever, Fatigue (But a question of whether this is due to his withdrawal or the illness) Nose: reports: Rhinorrhea / runny nose GI: denies: Abdominal Pain, Nausea, Vomiting PD PAST MEDICAL HISTORY - Past Medical History Past Medical History: Yes Cardiovascular: None Respiratory: Other Neuro: None Endocrine/Autoimmune: None GI: None : Other HEENT: None Psych: Other Musculoskeletal: None Derm: None - Past Surgical History Past Surgical History: No General: Appendectomy - Present Medications Home Medications: Ambulatory Orders Medication Instructions Recorded Confirmed Sulfamethox/Trimeth 800/160 1 each PO BID #20 tablet 06/08/22 06/11/22 [Bactrim Ds 800/160] cephALEXin [Keflex] 500 mg PO Q6H #40 cap 06/08/22 06/11/22 Chlorhexidine Gluconate [Hibiclens] 10 ml TP DAILY #236 ml 06/11/22 Linezolid [Zyvox] 600 mg PO BID #20 tablet 06/11/22 Mupirocin 2% Oint [Bactroban 2% 1 applic TOP BID #50 gm 06/11/22 Oint] - Allergies Allergies/Adverse Reactions: Allergies Allergy/AdvReac Type Severity Reaction Status Date / Time acetaminophen [From Tylenol] Allergy Rash Verified 06/11/22 16:02 - Social History Does the pt smoke?: Yes Smoking Status: Current every day smoker Does the pt drink ETOH?: Yes Does the pt have substance abuse?: Yes Substance Use and Type: Other - Immunizations Immunizations are current?: No - POLST Patient has POLST: No PD ED PE NORMAL - Vitals Vital signs reviewed: Yes - General General: Alert and oriented X 3, No acute distress - HEENT HEENT: Other (Mildly dilated pupils, rhinorrhea) - Cardiac Cardiac: RRR, No murmur - Respiratory Respiratory: No respiratory distress, Clear bilaterally - Abdomen Abdomen: Non tender - Back Back: No CVA TTP, No spinal TTP - Derm Derm: Normal color, Warm and dry - Extremities Extremities: Other (There is a purulent ulcer on the dorsum of the left hand with mild cellulitis, and also a purulent ulcer on the right anterior forearm. There is a very small ulcer on the right ankle without signs of infection.) - Neuro Neuro: Alert and oriented X 3, Normal speech Results - Vitals Vitals: Vital Signs - 24 hr 06/11/22 06/11/22 15:55 16:43 Temperature 37.0 C Heart Rate 120 H 112 H Respiratory 18 18 Rate Blood Pressure 128/75 127/75 O2 Saturation 98 99 Oxygen O2 Source Room air - Labs Labs: Laboratory Tests 06/11/22 06/11/22 06/11/22 16:40 16:40 16:40 WBC 11.4 H RBC 4.67 L Hgb 13.3 L Hct 41.0 L MCV 87.8 MCH 28.5 MCHC 32.4 RDW 14.2 Plt Count 484 H MPV 8.1 Neut # (Auto) 8.8 H Lymph # (Auto) 1.7 [place] # (Auto) 0.7 Eos # (Auto) 0.2 Baso # (Auto) 0.1 Absolute Nucleated RBC 0.00 Nucleated RBC % 0.0 Sodium 138 Potassium 3.9 Chloride 100 L Carbon Dioxide 28 Anion Gap 10.0 BUN 18 Creatinine 0.8 Estimated GFR (MDRD) 117 Glucose 113 H Lactic Acid 1.6 Calcium 9.0 Total Bilirubin 0.2 AST 17 ALT 22 Alkaline Phosphatase 89 Total Protein 7.9 Albumin 3.5 Globulin 4.4 H Albumin/Globulin Ratio 0.8 L PD MEDICAL DECISION MAKING - ED course ED course: 27-year-old homeless male with history of IV drug use, specifically fentanyl for the most part presents with wounds to the left hand, right forearm, and ankle with known huerta resistant MRSA. The only oral option is linezolid. He is not looking septic, and blood Cultures from the other day are negative. No murmur or other evidence of endocarditis. His white count is stable, minimally elevated at 11. There is a question of whether he is insured right now or not so I asked the family welfare social work professor to come by and help with that. In the meantime I was able to look up on good Rx, linezolid is now generic and available for about $50 for the course. This is within the mother's ability to help him with. He was also interested in detox and was given referral sources for [facility]. Departure - Departure Disposition: 01 Home, Self Care Clinical Impression: Opiate abuse, continuous, MRSA (methicillin resistant staph aureus) culture positive Open wound, hand Qualifiers: Encounter type: initial encounter Open wound type: unspecified Foreign body presence: without foreign body Laterality: left Qualified Code(s): S61.402A - Unspecified open wound of left hand, initial encounter Arm wound Qualifiers: Encounter type: initial encounter Laterality: right Qualified Code(s): S41.101A - Unspecified open wound of right upper arm, initial encounter Condition: Good Record reviewed to determine appropriate education?: Yes Instructions: ED Withdrawal Narcotic, ED Infec Skin Cellulitis Prescriptions: Mupirocin 2% Oint [Bactroban 2% Oint] 1 applic TOP BID #50 gm Chlorhexidine Gluconate [Hibiclens] 10 ml TP DAILY #236 ml Linezolid [Zyvox] 600 mg PO BID #20 tablet Comments: Recommend checking in at the detox facility that I gave you information for. For wound care, wash twice a day with Hibiclens, scrub the wound is much as you are able and then cover with mupirocin ointment and a simple bandage dressing. Call your doctor to arrange a follow-up appointment, make the next available appointment. In the interim, return anytime if worse or if new symptoms develop.
[2022-06-11 16:58] LABS: ALBUMIN 3.5 g/dL (3.2-5.5); ALBUMIN/GLOBULIN RATIO 0.8 (1.0-2.2); BILIRUBIN,TOTAL 0.2 mg/dL (0.2-1.0); CREATININE 0.8 mg/dL (0.6-1.2); POTASSIUM 3.9 mmol/L (3.5-5.0); TOTAL PROTEIN 7.9 g/dL (6.7-8.2)
[2022-06-11] MEDS ORDERED: LINEZOLID 600 MG/300 ML 600 MG/300 ML BAG IV ONE (17:00)
[2022-06-11 18:11] VITALS: BP 116/70
== END 2022-06-11 18:20 | disposition home or self-care (01) ==
LOC: ED 15:45
DX: F11.10 Opioid abuse, uncomplicated (principal); L03.114 Cellulitis of left upper limb; S61.402A Unspecified open wound of left hand, initial encounter; S41.101A Unspecified open wound of right upper arm, initial encounter; B95.62 Methicillin resistant Staphylococcus aureus infection as the cause of diseases classified elsewhere; L98.499 Non-pressure chronic ulcer of skin of other sites with unspecified severity; L97.319 Non-pressure chronic ulcer of right ankle with unspecified severity; X58.XXXA Exposure to other specified factors, initial encounter; J34.89 Other specified disorders of nose and nasal sinuses; F17.200 Nicotine dependence, unspecified, uncomplicated; Z59.00 Homelessness unspecified
CPT/HCPCS: 36415; 80053; 83605; 85025; 96365; 99283; 99284; A9270; J2020; 87040

== ENCOUNTER 2022-06-16 09:16 | Outpatient (CLI) | payer MEDICAID | END 2022-06-16 23:59 | disposition EMS.NT | LOC: EMS 09:16 | DX: R07.9 Chest pain, unspecified (principal) ==

== ENCOUNTER 2022-06-18 16:04 | Emergency (ER) | payer MEDICAID ==
[2022-06-18 18:45] VITALS: BP 130/80
--- NOTE | 2022-06-18 18:45 | ED Physician Documentation ---
History of Present Illness - Stated complaint Stated Complaint: FEVER, OPEN WOUNDS - Chief complaint Chief Complaint: General - History obtained from History obtained from: Patient - Additonal information Additional information: This is a 27-year-old male with a past medical history of IV fentanyl abuse Who presents with mother due to concerns for fever. The patient was seen about 10 days ago for fever and wounds on his extremities and was diagnosed with MRSA ulcerations on both hands and the right knee. He was given linezolid p.o. which he took a couple times and then missed about 5 days and then took a couple and then missed a day Or 2 again. He states Wounds are actually getting better but he continues to feel febrile and he is very fatigued, he slept the better part of the last 48 hours. He has not used IV drugs or any other drugs recently and states everything out of his system. He went to an intake visit today At a rehab facility and they said they cannot take him until his fevers were addressed. He has a cough and feels some pain that is reproducible on the left chest wall, has not had any dyspnea, no abdominal pain, no nausea vomiting or diarrhea, no urinary symptoms. He is unsure if he has had any sick contacts. The patient intermittently lives on the streets and with his mother. He states he is last took naproxen this morning around 8 or 9 AM, no other antipyretics today. He is afebrile on arrival but states he just ate ice cream however I repeat test after 2 hours shows that he is still afebrile. Review of Systems Ten Systems: 10 systems reviewed and negative (Except as noted in HPI) PD PAST MEDICAL HISTORY - Past Medical History Past Medical History: Yes Cardiovascular: None Respiratory: Other Neuro: None Endocrine/Autoimmune: None GI: None : Other HEENT: None Psych: Other (IV drug use) Musculoskeletal: None Derm: None - Past Surgical History Past Surgical History: No General: Appendectomy - Present Medications Home Medications: Ambulatory Orders Medication Instructions Recorded Confirmed Linezolid [Zyvox] 600 mg PO BID #20 tablet 06/11/22 06/18/22 - Allergies Allergies/Adverse Reactions: Allergies Allergy/AdvReac Type Severity Reaction Status Date / Time acetaminophen [From Tylenol] Allergy Rash Verified 06/18/22 16:22 - Social History Does the pt smoke?: Yes Smoking Status: Current every day smoker Does the pt drink ETOH?: Yes Does the pt have substance abuse?: Yes - Immunizations Immunizations are current?: No - POLST Patient has POLST: No PD ED PE NORMAL - Vitals Vital signs reviewed: Yes - General General: Alert and oriented X 3, No acute distress, Other (Appears thin and somewhat disheveled but in no acute distress) - HEENT HEENT: Atraumatic, Moist mucous membranes, Pharynx benign - Neck Neck: Supple, no meningeal sign, No JVD - Cardiac Cardiac: RRR, No murmur, No gallop, No rub, Strong equal pulses - Respiratory Respiratory: No respiratory distress, Clear bilaterally - Abdomen Abdomen: Normal bowel sounds, Soft, Non tender, Non distended - Derm Derm: Normal color, Warm and dry, Other (Healing ulcerations on the right and left hand as well as the right knee. There is no surrounding erythema, no current drainage, no palpable induration or fluctuance) - Extremities Extremities: No deformity, No tenderness to palpate, Normal ROM s pain, No edema - Neuro Neuro: Alert and oriented X 3 Eye Opening: Spontaneous Motor: Obeys Commands Verbal: Oriented GCS Score: 15 - Psych Psych: Normal mood, Normal affect Results - Vitals Vitals: Vital Signs - 24 hr 06/18/22 06/18/22 06/18/22 16:20 16:22 18:22 Temperature 36.8 C 36.8 C 36.6 C Heart Rate 99 99 88 Respiratory 16 16 16 Rate Blood Pressure 144/79 H 144/79 H 130/80 O2 Saturation 100 100 100 Oxygen O2 Source Room air - Labs Labs: Laboratory Tests 06/18/22 06/18/22 06/18/22 18:40 18:40 18:58 WBC 15.4 H RBC 4.56 L Hgb 13.0 L Hct 39.8 L MCV 87.3 MCH 28.5 MCHC 32.7 RDW 15.1 H Plt Count 349 MPV 8.2 Neut # (Auto) 12.5 H Lymph # (Auto) 2.1 Real # (Auto) 0.7 Eos # (Auto) 0.1 Baso # (Auto) 0.0 Absolute Nucleated RBC 0.00 Nucleated RBC % 0.0 Sodium 138 Potassium 3.9 Chloride 104 Carbon Dioxide 24 Anion Gap 10.0 BUN 17 Creatinine 0.8 Estimated GFR (MDRD) 117 Glucose 130 H Calcium 9.1 Nasal Adenovirus (PCR) NOT DETECTED Nasal B. parapertussis DNA (PCR) NOT DETECTED Nasal Coronavir 229E PCR NOT DETECTED Nasal Coronavir HKU1 PCR NOT DETECTED Nasal Coronavir NL63 PCR NOT DETECTED Nasal Coronavir OC43 PCR NOT DETECTED Nasal Enterovir/Rhinovir PCR DETECTED A Nasal Influenza B PCR NOT DETECTED Nasal Influenza A PCR NOT DETECTED Nasal Parainfluen 1 PCR NOT DETECTED Nasal Parainfluen 2 PCR NOT DETECTED Nasal Parainfluen 3 PCR NOT DETECTED Nasal Parainfluen 4 PCR NOT DETECTED Nasal RSV (PCR) NOT DETECTED Nasal B.pertussis DNA PCR NOT DETECTED Nasal C.pneumoniae (PCR) NOT DETECTED Saturnino Human Metapneumo PCR NOT DETECTED Nasal M.pneumoniae (PCR) NOT DETECTED Nasal SARS-CoV-2 (PCR) NOT DETECTED PD MEDICAL DECISION MAKING - ED course Complexity details: reviewed results, re-evaluated patient, considered differential, d/w patient, d/w family ED course: This is a 27-year-old male with past medical history of IV fentanyl use and rece nt MRSA infection for which he is prescribed antibiotics that he took only intermittently who presents with symptoms as per HPI including fever, fatigue, nasal congestion and mild cough. He is stable appearing on physical exam, his vitals are stable he is afebrile. He does have some healing ulcerations on his hands and right knee that appear to be improved from prior, not currently draining, no spreading erythema. Who is complaining of chest wall pain however there are no signs of rash or lesions in the chest wall and a chest x-ray is negative. A work-up was done as patient does have a history of MRSA and was probably incompletely treated with medication as he did not adhere to regimen after we did obtain blood cultures, CBC and CMP. CBC does show an increase in his white blood cell count however clinically his wounds appear to be better And he has no other physical exam findings concerning for new bacterial infection. Blood cultures were obtained however he has no fever or signs of sepsis at this time to suggest the need for admission for IV antibiotics. The patient also had a viral panel done which shows rhinovirus which may be contributing to his symptoms as well. He has about 6 more days of antibiotics left and he was advised to resume them now and to take as prescribed for the next 6 days for his MRSA infection. He was otherwise advised to continue supportive measures including ibuprofen and Tylenol for body aches cold symptoms. At this time, he does not need to be hospitalized but if his blood cultures returned positive, he would need to come in for IV antibiotics, or if he had clinical deterioration despite compliance with his oral antibiotics. The patient was counseled extensively on the need to be compliant with his medication and return precautions reviewed. He plans to get into drug rehab once this infection is improved. Departure - Departure Disposition: 01 Home, Self Care Clinical Impression: Viral syndrome, MRSA (methicillin resistant staph aureus) culture positive Condition: Good Instructions: ED Skin Infec MRSA Suspect Conf, ED Viral Syndrome Ch Comments: You presented with ongoing fevers and feeling unwell in general. Your physical exam here is stable, your wounds Appear to be healing though he did miss some doses of antibiotics. Do have an elevated white blood cell count of this is nonspecific and likely due to your wounds. Please resume taking the linezolid and do not miss any doses as this can lead to resistance. We did draw blood cultures today and if they turning sander tender positive we will call you for return to the hospital. We also obtained a viral panel which is still pending. You can log onto you your patient portal to look for results or call you later tonight or in the morning for results of this viral panel. Viral symptoms are treated suppo rtively with Tylenol and ibuprofen as needed, rest and plenty of oral fluids. At this point time you are stable for discharge home. Discharge Date/Time: 06/18/22 19:40
[2022-06-18 19:02] LABS: BASOPHILS % (AUTO) 0.3 %; EOSINOPHILS # (AUTO) 0.1 10^3/uL (0.0-0.7); EOSINOPHILS % (AUTO) 0.6 %; HCT - HEMATOCRIT 39.8 % (42.0-52.0); LYMPHOCYTES # (AUTO) 2.1 10^3/uL (1.5-3.5); LYMPHOCYTES % (AUTO) 13.4 %; MEAN CORPUSCULAR HEMOGLOBIN 28.5 pg (27.0-31.0); MEAN CORPUSCULAR HGB CONC 32.7 g/dL (32.0-36.0); MEAN CORPUSCULAR VOLUME 87.3 fL (80.0-94.0); MEAN PLATELET VOLUME 8.2 fL (7.4-11.4); MONOCYTES # (AUTO) 0.7 10^3/uL (0.0-1.0); MONOCYTES % (AUTO) 4.3 %; NEUTROPHILS # (AUTO) 12.5 10^3/uL (1.5-6.6); NEUTROPHILS % (AUTO) 81.1 %; PLT - PLATELET COUNT 349 10^3/uL (130-450); RED BLOOD COUNT 4.56 10^6/uL (4.70-6.10); RED CELL DISTRIBUTION WIDTH 15.1 % (12.0-15.0); WHITE BLOOD COUNT 15.4 x10^3/uL (4.8-10.8)
[2022-06-18 19:11] LABS: CALCIUM 9.1 mg/dL (8.5-10.3); CREATININE 0.8 mg/dL (0.6-1.2); POTASSIUM 3.9 mmol/L (3.5-5.0)
--- NOTE | 2022-06-18 19:14 | XRAY Report ---
PROCEDURE: Chest 1 View X-Ray INDICATIONS: chest pain TECHNIQUE: One view of the chest was acquired. COMPARISON: Chest x-ray 06/08/2022 FINDINGS: Surgical changes and devices: None. Lungs and pleura: No pleural effusions or pneumothorax. Lungs are clear. Mediastinum: Mediastinal contours appear normal. Heart size is normal. Bones and chest wall: No suspicious bony lesions. Overlying soft tissues appear unremarkable. IMPRESSION: No acute pulmonary process. Reviewed by: China Hair MD on 06/18/2022 7:13 PM PST Approved by: China Hair MD on 06/18/2022 7:13 PM [facility] Station ID: [id number]
[2022-06-18 19:42] LABS: B. PARAPERTUSSIS- RESP PCR PAN NOT DETECTED; B. PERTUSSIS- RESP PCR PANEL NOT DETECTED; C. PNEUMONIAE- RESP PCR PANEL NOT DETECTED; CORONAVIRUS 229E-RESP PCR NOT DETECTED; CORONAVIRUS HKU1-RESP PCR NOT DETECTED; CORONAVIRUS NL63-RESP PCR NOT DETECTED; CORONAVIRUS OC43-RESP PCR NOT DETECTED; HUMAN METAPNEUMOVIRUS NOT DETECTED; INFLUENZA A- RESP PCR PANEL NOT DETECTED; INFLUENZA B - RESP PCR PANEL NOT DETECTED; M. PNEUMONIAE- RESP PCR PANEL NOT DETECTED; PARAINFLUENZA VIRUS 1 NOT DETECTED; PARAINFLUENZA VIRUS 2 NOT DETECTED; PARAINFLUENZA VIRUS 3 NOT DETECTED; PARAINFLUENZA VIRUS 4 NOT DETECTED; RHINOVIRUS/ENTEROVIRUS DETECTED; RSV- RESP PCR PANEL NOT DETECTED; SARS-CoV-2 -RESP PCR PANEL NOT DETECTED
== END 2022-06-18 19:40 | disposition home or self-care (01) ==
LOC: ED 16:04
DX: A49.02 Methicillin resistant Staphylococcus aureus infection, unspecified site (principal); B34.9 Viral infection, unspecified; F17.200 Nicotine dependence, unspecified, uncomplicated; Z20.822 Contact with and (suspected) exposure to COVID-19
CPT/HCPCS: 36415; 80048; 85025; 87040; 87633; 99283; 99284